=== PATIENT | male | born 1955 | race Caucasian/White ===

== ENCOUNTER 2018-06-27 08:50 | Outpatient (CLI) | payer BC ==
[2018-06-27] MEDS ORDERED: Iopamidol 370 76% 100 ML VIAL ONE (09:27)
--- NOTE | 2018-06-27 13:36 | CT ---
CT ABDOMEN WITH CONTRAST CT PELVIS WITH CONTRAST: Date: 06/27/18 COMPARISON: 07/11/15. HISTORY: Esophageal cancer. Hiatal hernia repair. Small bowel surgery. Abdominal pain. Weight loss. FINDINGS: CT ABDOMEN: Dependent atelectatic changes. Normal cardiac silhouette. Descending thoracic aorta and abdominal aor ta have a normal caliber. No periaortic fat stranding. Unremarkable gallbladder. Small amount of gallstones and sludge are suspected. If there is concern fo r gallbladder pathology, consider right upper quadrant ultrasound. Portal vein is patent. Liver demonstrates mild nodularity. Spleen is enlarged, measuring 14.6 cm. Small amount of splenic va rices and esophageal varices are noted. No gastrohepatic, retrocrural, or periportal lymphadenopathy. There is nonspecific stranding of the abdominal mesenteric. No mass, lymphadenopathy, or free air. Symmetric enhancement of the kidneys. Bilaterally, no obstructive uropathy. Gastric mucosa, duodenum, and multiple small bowel loops are unremarkable. Ileocecal junction is norm al. Normal caliber appendix. There is mild mucosal thickening and wall thickening involving the cecal apex, nonspecific. Mucosal prominence and bowel wall prominence of the sigmoid colon is also noted. Findings may be due to inadequate distention. CT PELVIS: Unremarkable urinary bladder. No pelvic mass, lymphadenopathy, free air, or free fluid. No lytic or blastic lesions in the osseous structures. IMPRESSION: 1. Splenic and esophageal varices. 2. Mild splenomegaly. 3. Hyperdense material within the lumen of the gallbladder, nonspecific. Gallbladder ultrasound if c linically warranted. 4. Mucosal prominence and bowel wall prominence of the cecal apex and sigmoid colon. These findings may in part be due to inadequate distention. Colonoscopy is recommended. POS: [facility]
== END 2018-06-27 08:51 | disposition home or self-care (01) ==
LOC: BICCT 08:50
PROVIDERS: ATTEND Physician Assistant Medical
DX: K74.60 Unspecified cirrhosis of liver (principal); B18.2 Chronic viral hepatitis C; R63.4 Abnormal weight loss; R11.0 Nausea; I85.00 Esophageal varices without bleeding; I86.8 Varicose veins of other specified sites; R16.1 Splenomegaly, not elsewhere classified; K82.8 Other specified diseases of gallbladder
CPT/HCPCS: 74177; 82565

== ENCOUNTER 2019-08-28 08:20 | Outpatient (CLI) | payer BC ==
--- NOTE | 2019-08-28 09:43 | MRI ---
EXAM: MRI of the abdomen without and with contrast COMPARISON: CT abdomen/pelvis 06/27/2018 HISTORY: Cirrhosis TECHNIQUE: Multiplanar multi sequence MR images were taken of the abdomen without and with IV contras t. [An MRCP was performed.] FINDINGS: Liver: Slightly nodular in appearance consistent with cirrhosis. There is hypertrophy of the left lob e of the liver. No focal liver lesions or intrahepatic ductal dilatation. Normal signal without dropout on out of phase images. No abnormal enhancement. Gallbladder: Dependent filling defects with small gallstones. Common bile duct: Normal caliber without filling defects Adrenal glands: Unremarkable. Kidneys: No hydronephrosis or focal renal lesions. No abnormal areas of enhancement. Spleen: Enlarged measuring 17.4 cm in length.. Pancreas: Unremarkable. No abnormal enhancement. Retroperitoneum: No enlarged lymph nodes Bones: No marrow signal abnormality. Bilateral gynecomastia is seen. IMPRESSION: 1. Cirrhosis with splenomegaly 2. Cholelithiasis
[2019-08-28] MEDS ORDERED: Magnevist 469MG/ML 20 ML VIAL ONE (15:57)
== END 2019-08-28 08:21 | disposition home or self-care (01) ==
LOC: BICMRI 08:20
PROVIDERS: ATTEND Internal Medicine Gastroenterology
DX: K22.70 Barrett's esophagus without dysplasia (principal); K74.60 Unspecified cirrhosis of liver; I85.00 Esophageal varices without bleeding; Z85.01 Personal history of malignant neoplasm of esophagus; R16.1 Splenomegaly, not elsewhere classified; K80.20 Calculus of gallbladder without cholecystitis without obstruction
CPT/HCPCS: 74183; 82565; A9579

== ENCOUNTER 2022-03-25 12:56 | Outpatient (CLI) | payer MEDICARE, OTHER ==
[2022-03-25] MEDS ORDERED: Magnevist 469MG/ML 20 ML VIAL ONE (14:16)
== END 2022-03-25 12:57 | disposition home or self-care (01) ==
LOC: MRI 12:56
PROVIDERS: ATTEND Internal Medicine Gastroenterology
DX: K74.60 Unspecified cirrhosis of liver (principal); M54.50 Low back pain, unspecified; R63.4 Abnormal weight loss; K22.70 Barrett's esophagus without dysplasia; I85.00 Esophageal varices without bleeding; K76.6 Portal hypertension
CPT/HCPCS: 74183; A9579

== ENCOUNTER 2022-04-14 07:30 | Outpatient (CLI) | payer OTHER, MEDICARE ==
[2022-04-14] MEDS ORDERED: Magnevist 469MG/ML 20 ML VIAL ONE (09:25)
== END 2022-04-14 07:31 | disposition home or self-care (01) ==
LOC: BICMRI 07:30
PROVIDERS: ATTEND Specialist
DX: M48.8X4 Other specified spondylopathies, thoracic region (principal); M48.02 Spinal stenosis, cervical region; M48.04 Spinal stenosis, thoracic region; C72.0 Malignant neoplasm of spinal cord; C79.51 Secondary malignant neoplasm of bone
CPT/HCPCS: 72157; 82565; A9579

== ENCOUNTER 2022-05-06 09:35 | Inpatient (IN) | payer OTHER, MEDICARE ==
[2022-05-06 15:48] VITALS: BMI 23.3
[2022-05-06 16:39] LABS: ALT (SGPT) 14 U/L (8-55); AST (SGOT) 23 U/L (5-34); Alkaline Phosphatase 70 U/L (40-110); Anion Gap 8 mmol/L (10-20); BUN (Urea Nitrogen) 13 mg/dL (8.4-25.7); Bilirubin, Total 0.5 mg/dL (0.2-1.2); Calc. Creatinine Clearance 64 mL/min (70-130); Calcium 8.7 mg/dL (7.8-10.44); Carbon Dioxide 29 mmol/L (23-31); Chloride 104 mmol/L (98-107); Estimated GFR 64; Globulin 4.9 g/dL (2.4-3.5); Glucose 87 mg/dL (80-115); Potassium 3.6 mmol/L (3.5-5.1); Protein, Total 7.9 g/dL (5.8-8.1); Sodium 137 mmol/L (136-145)
[2022-05-06 17:33] LABS: Bacteria/HPF None Seen HPF (None Seen); Bilirubin Negative (Negative); Blood, Urine Negative (Negative); Clarity Turbid (Clear); Glucose, Urine (Dipstick) Normal (Negative); Ketone, Urine Trace mg/dL (Negative); Leukocyte Negative Leu/uL (Negative); Nitrite Negative (Negative); Protein, Urine (Dipstick) 100 mg/dL (Neg-Trace); Specific Gravity, Urine 1.038 (1.002-1.036); Squamous Epithelial 0-3 HPF (0-3); Urobilinogen 6 mg/dL (Less than 2)
[2022-05-06] MEDS ORDERED: fentaNYL 50 mcg/hour Patch TD SCH (18:00)
[2022-05-06] MEDS: Carvedilol 3.125 MG TAB PO SCH (20:41)
[2022-05-06] MEDS: Ondansetron PF 4 MG/2 ML Vial IVP PRN (23:08)
[2022-05-06] MEDS: HYDROcodone/Acetaminophen 5/325 mg Tablet PO PRN (23:11)
[2022-05-07 00:35] VITALS: TEMP 98
[2022-05-07] MEDS: HYDROcodone/Acetaminophen 5/325 mg Tablet PO PRN ×4 (06:11→20:15)
[2022-05-07] MEDS: Carvedilol 3.125 MG TAB PO SCH ×2 (08:56→20:16)
[2022-05-07 10:01] LABS: #Eosinphils 0.1 thou/uL (0.0-0.7); #Lymphocytes 0.7 thou/uL (1.20-3.40); #Monocytes 0.2 thou/uL (0.11-0.59); #Neutrophils 1.1 thou/uL (1.40-6.50); %Basophils 0.9 % (0.0-1.0); %Eosinophils 3.2 % (0.0-10.0); %Lymphocytes 34.1 % (21.0-51.0); %Monocytes 9.1 % (0.0-10.0); %Neutrophils 52.6 % (42.0-75.0); Mean Corpuscular HGB CONC 32.7 g/dL (32.0-36.0); Mean Corpuscular Volume 94.7 fL (78.0-98.0); Mean Platelet Volume 7.5 fL (7.4-10.4); Platelet Count 53 thou/uL (130-400); RBC Distribution Width 13.8 % (11.5-14.5); Red Blood Cell (RBC) Count 3.24 mill/uL (4.70-6.10); White Blood Cell (WBC) Count 2.2 thou/uL (4.8-10.8)
[2022-05-07 10:02] LABS: MDiff Complete? YES; Ovalocytes SLIGHT = 2-5 cells (100X) (0-1/hpf); Platelet Morphology Comment Appears Decreased; Tear Drops SLIGHT = 2-5 cells (100X) (0-1/hpf)
[2022-05-07] MEDS: Dexamethasone 4 mg/ml Vial SLOW IVP SCH ×2 (11:36→17:09)
[2022-05-07] MEDS: Ondansetron PF 4 MG/2 ML Vial IVP PRN (11:41)
[2022-05-07 20:24] VITALS: BP 113/68
[2022-05-08] MEDS: Dexamethasone 4 mg/ml Vial SLOW IVP SCH ×2 (01:05→04:58)
[2022-05-08] MEDS: HYDROcodone/Acetaminophen 5/325 mg Tablet PO PRN ×3 (01:09→10:57)
[2022-05-08] MEDS: Carvedilol 3.125 MG TAB PO SCH (08:53)
[2022-05-08] MEDS ORDERED: Dexamethasone 4 MG TAB PO SCH (21:00)
== END 2022-05-08 12:05 | disposition home or self-care (01) | DRG 543 ==
LOC: MSONC 14:48
PROVIDERS: ADMIT Specialist; ATTEND Specialist
DX: C79.51 Secondary malignant neoplasm of bone (principal); G95.20 Unspecified cord compression; K76.6 Portal hypertension; Z20.822 Contact with and (suspected) exposure to COVID-19; K74.60 Unspecified cirrhosis of liver; B18.2 Chronic viral hepatitis C; K22.70 Barrett's esophagus without dysplasia; K21.9 Gastro-esophageal reflux disease without esophagitis; C80.1 Malignant (primary) neoplasm, unspecified; M48.04 Spinal stenosis, thoracic region; K80.20 Calculus of gallbladder without cholecystitis without obstruction; D69.6 Thrombocytopenia, unspecified; M19.90 Unspecified osteoarthritis, unspecified site; Z88.1 Allergy status to other antibiotic agents; Z79.899 Other long term (current) drug therapy
CPT/HCPCS: 36415; 36416; 71260; 74177; 80053; 81001; 82378; 84153; 85025; 86301; J1100; J2405; U0003; U0005

== ENCOUNTER 2022-05-18 09:30 | Day surgery (SDC) | payer OTHER, MEDICARE ==
[2022-05-15 10:17] VITALS: BMI 23.4
[~2022-05-18 09:30] MED LIST: FLU VACC QS2022-23(65YR UP)/PF 240 MCG/0.7 ML SYRINGE IM ONE
[2022-05-18] MEDS ORDERED: FENTANYL 50 MCG/ML VIAL 50 MCG/ML VIAL ONE (10:04)
[2022-05-18] MEDS ORDERED: Sodium Bicarbonate 2.5 MEQ/5 ML VIAL ONE (10:05)
[2022-05-18] MEDS ORDERED: Midazolam HCl 2 mg/2 ml Vial ONE (10:05)
[2022-05-18] MEDS ORDERED: Lidocaine 2% PF 5 ML VIAL ONE (10:05)
[2022-05-18 13:17] VITALS: BP 123/65; TEMP 98
[2022-05-18] MEDS ORDERED: FLU VACC QS2022-23(65YR UP)/PF 240 MCG/0.7 ML SYRINGE IM ONE (13:30)
== END 2022-05-18 12:38 | disposition home or self-care (01) ==
LOC: CT 09:30
PROVIDERS: ATTEND Internal Medicine Hematology & Oncology
PROC: 0PB43ZX Excision of Thoracic Vertebra, Percutaneous Approach, Diagnostic (ICD-10-PCS; principal; 2022-05-18)
DX: M89.8X8 Other specified disorders of bone, other site (principal); G95.20 Unspecified cord compression; K74.60 Unspecified cirrhosis of liver; M19.90 Unspecified osteoarthritis, unspecified site; K21.9 Gastro-esophageal reflux disease without esophagitis; F10.11 Alcohol abuse, in remission; Z85.01 Personal history of malignant neoplasm of esophagus; Z88.1 Allergy status to other antibiotic agents
CPT/HCPCS: 20225; 77012; 88184; 88307; 88333; J2001; J2250; J3010

== ENCOUNTER 2022-06-08 08:00 | Outpatient (CLI) | payer OTHER, MEDICARE | END 2022-06-08 08:01 | disposition home or self-care (01) | LOC: PET 08:00 | PROVIDERS: ATTEND Internal Medicine Hematology & Oncology | DX: C90.00 Multiple myeloma not having achieved remission (principal); C15.9 Malignant neoplasm of esophagus, unspecified; K22.89 Other specified disease of esophagus; K63.89 Other specified diseases of intestine | CPT/HCPCS: 78816; A9552 ==

== ENCOUNTER → 2022-07-24 | Day surgery (SDC) | payer OTHER, MEDICARE ==
[~2022-07-24] MED LIST changes: +Fentanyl 100 MCG/2 ML VIAL ONE; +Lidocaine 1% PF 5 ML VIAL ONE; +Sodium Bicarbonate 2.5 MEQ/5 ML VIAL ONE
[2022-07-24 09:15] LABS: INR-International Normal Ratio 1.1; PTT 37.1 sec (22.9-36.1); Prothrombin Time 15.1 sec (12.0-14.7)
[2022-07-24 09:40] VITALS: BP 97/56; TEMP 98.3
== END | disposition home or self-care (01) ==
LOC: CT 08:41
PROVIDERS: ATTEND Internal Medicine Hematology & Oncology
PROC: 07DR3ZX Extraction of Iliac Bone Marrow, Percutaneous Approach, Diagnostic (ICD-10-PCS; principal; 2022-07-24)
DX: C90.00 Multiple myeloma not having achieved remission (principal); J34.89 Other specified disorders of nose and nasal sinuses; K70.30 Alcoholic cirrhosis of liver without ascites; D61.818 Other pancytopenia; F11.11 Opioid abuse, in remission; F14.11 Cocaine abuse, in remission; J44.9 Chronic obstructive pulmonary disease, unspecified; Z85.01 Personal history of malignant neoplasm of esophagus; Z77.22 Contact with and (suspected) exposure to environmental tobacco smoke (acute) (chronic); Z79.899 Other long term (current) drug therapy; Z88.1 Allergy status to other antibiotic agents
CPT/HCPCS: 20225; 77012; 85097; 85610; 85730; 88184; 88237; 88305; 88311; 88313; 88341; 88342; 88365; J3010

== ENCOUNTER 2023-05-20 09:04 | Outpatient (CLI) | payer MEDICARE | END 2023-05-20 09:05 | disposition home or self-care (01) | LOC: MRI 09:04 | PROVIDERS: ATTEND Internal Medicine Gastroenterology | DX: K76.82 Hepatic encephalopathy (principal); K74.60 Unspecified cirrhosis of liver; I85.00 Esophageal varices without bleeding; R18.8 Other ascites; S24.113A Complete lesion at T7-T10 level of thoracic spinal cord, initial encounter; K76.6 Portal hypertension | CPT/HCPCS: 74183 ==

== ENCOUNTER 2023-05-28 11:59 | Outpatient (CLI) | payer MEDICARE ==
[2023-05-28] MEDS ORDERED: Magnevist 469MG/ML 20 ML VIAL ONE (13:49)
== END 2023-05-28 12:00 | disposition home or self-care (01) ==
LOC: BICMRI 11:59
PROVIDERS: ATTEND Internal Medicine Hematology & Oncology
DX: C90.00 Multiple myeloma not having achieved remission (principal)
CPT/HCPCS: A9579

== ENCOUNTER 2023-12-22 12:17 | Outpatient (CLI) | payer MEDICARE | END 2023-12-22 12:18 | disposition home or self-care (01) | LOC: ULT 12:17 | PROVIDERS: ATTEND Internal Medicine Hematology & Oncology | DX: Z51.11 Encounter for antineoplastic chemotherapy (principal); C90.00 Multiple myeloma not having achieved remission; Z79.899 Other long term (current) drug therapy | CPT/HCPCS: 93306 ==

== ENCOUNTER 2024-01-13 09:11 | Day surgery (SDC) | payer MEDICARE ==
[2024-01-12 12:06] VITALS: BMI 25.8
[2024-01-13 10:33] LABS: #Basophils Less than 0.03 10x3/uL (0.0-0.2); %Basophils 0.4 % (0.0-1.0); %Eosinophils 3.9 % (0.0-10.0); %Lymphocytes 18.6 % (21.0-51.0); %Monocytes 19.4 % (0.0-10.0); %Neutrophils 56.5 % (42.0-75.0); Hematocrit 31.2 % (42.0-52.0); Hemoglobin 10.1 g/dL (14.0-18.0); Mean Corpuscular HGB CONC 32.4 g/dL (32.0-36.0); Mean Corpuscular Hemoglobin 28.5 pg (27.0-31.0); Mean Corpuscular Volume 87.9 fL (78.0-98.0); Platelet Count 55 10x3/uL (130-400); RBC Distribution Width 16.9 % (11.5-14.5); Red Blood Cell (RBC) Count 3.55 mill/uL (4.70-6.10)
[2024-01-13] MEDS ORDERED: Lidocaine 2% PF 5 ML VIAL ONE ×2 (10:43→11:01)
[2024-01-13] MEDS ORDERED: EPINEPHrine 1 MG/ML VIAL ONE (10:43)
[2024-01-13] MEDS ORDERED: Bupivacaine 0.25% HCL 30 ML VIAL ONE (10:43)
[2024-01-13] MEDS ORDERED: PROPOFOL 60 ML ONE (10:54)
[2024-01-13] MEDS ORDERED: fentaNYL PF 100 MCG/2 ML SYRINGE ONE (10:54)
[2024-01-13] MEDS ORDERED: Ondansetron PF 4 MG/2 ML Vial ONE (11:01)
[2024-01-13] MEDS ORDERED: CEFAZOLIN 2 GM VIAL ONE (11:05)
[2024-01-13] MEDS ORDERED: Sodium Chloride 0.9% 100 ML ONE (11:05)
[2024-01-13] MEDS ORDERED: PHENYLEPHRINE-NS 100 MCG/ML 10 ML SYRINGE ONE (11:20)
[2024-01-13] MEDS ORDERED: Glycopyrrolate 0.2 MG/ML 5 ML SYRINGE ONE (11:31)
== END 2024-01-13 13:11 | disposition home or self-care (01) ==
LOC: SDC 09:11
PROVIDERS: ATTEND Surgery
PROC: 0JH63XZ Insertion of Tunneled Vascular Access Device into Chest Subcutaneous Tissue and Fascia, Percutaneous Approach (ICD-10-PCS; principal; 2024-01-13)
DX: C90.00 Multiple myeloma not having achieved remission (principal); C22.9 Malignant neoplasm of liver, not specified as primary or secondary; Z88.8 Allergy status to other drugs, medicaments and biological substances
CPT/HCPCS: 36561; 71045; 85025; A6258; C1788; J0171; J0665; J1642; J2001; J2405; J2704; J3490